=== PATIENT | male | born 2005 | race Caucasian/White ===

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

== ENCOUNTER 2025-03-12 15:01 | Emergency (ER) | payer BC, SELFPAY ==
[2025-03-12 15:03] VITALS: BP 134/89; PULSE 109; RESP 18; TEMP 37.3; O2SAT 99
--- NOTE | 2025-03-12 15:09 | CRLHL7_ITS ---
For Patients: As a result of the Century Cures Act, medical imaging exams and procedure reports are released immediately into your electronic medical record. You may view this report before your referring provider. If you have questions, please contact your health care provider. INDICATION: Throat pain. TECHNIQUE: CT of the neck soft tissues performed with IV contrast. Contrast: 84 cc Isovue 370. COMPARISON: CT neck soft tissue 10/15/2024. FINDINGS: Symmetric enlargement in homogeneous enhancement of the palatine tonsils. Enhancement of the nasopharyngeal mucosa. No drainable fluid collection identified. The parotid and submandibular glands appear unremarkable. The thyroid gland is normal. Scattered prominent cervical chain lymph nodes. The visualized major vascular structures appear intact. The visualized intracranial components appear grossly intact. Visualized orbits and contents appear unremarkable. Moderate paranasal sinus mucosal disease. Lung apices are clear. IMPRESSION: 1. Pharyngitis with palatine tonsillitis. 2. No drainable fluid collection identified. 3. Presumed reactive mild cervical chain lymphadenopathy. Please note that all CT scans at this facility use dose modulation, iterative reconstruction, and/or weight-based dosing when appropriate to reduce radiation dose to as low as reasonably achievable. Dictated by Leonard King MD @ 03/12/2025 4:17:56 PM (Electronically Signed)
--- NOTE | 2025-03-12 15:17 | ED.GENADULT ---
HPI - General Adult General Chief complaint: Ear/Nose/Throat Problem <Gasper Agarwal MD - Last Filed: 03/17/25 08:26> Stated complaint: throat issues <Gasper Agarwal MD - Last Filed: 03/17/25 08:26> Time Seen by Provider: 03/12/25 15:02 <Gasper Agarwal MD - Last Filed: 03/17/25 08:26> History of Present Illness HPI narrative: 19 year white male has had history of peritonsillar abscess in the past presents with some throat tightening last night he has had an earache. He has an ear infection and he has been called in antibiotics from the clinic. They were concerned about his throat given that his right-sided little more swollen than the left and he has more take pain on the right side than the left. He still able to swallow. He is scheduled get tonsillectomy in the middle of March. No other specific complaints. He is able to swallow, no airway hunger her breathing difficulty. <Gasper Agarwal MD - Last Filed: 03/17/25 08:26> Related Data Home medications: Home Medications ?Medication ?Instructions ?Recorded ?Confirmed risankizumab-rzaa 360 mg/2.4 mL 360 mg subcut .[id number] 10/13/24 03/12/25 (150 mg/mL) subcut wearable injector (Skyrizi) Previous Rx's ?Medication ?Instructions ?Recorded venlafaxine 150 mg 150 mg PO QAM #90 caps 10/21/24 capsule,extended release 24 hr amoxicillin-potassium clavulanate 1 tab PO BID #18 tabs 03/17/25 1,000 mg-62.5 mg tablet,ext.rel 12hr (Augmentin XR) <Gasper Agarwal MD - Last Filed: 03/17/25 08:26> Allergies/adverse reactions: Allergies Allergy/AdvReac Type Severity Reaction Status Date / Time No Known Drug Allergies Allergy Verified 03/12/25 15:54 <Gasper Agarwal MD - Last Filed: 03/17/25 08:26> Review of Systems Status of ROS: Reports: 6 or more systems reviewed and unremarkable except as noted in History and below <Gasper Agarwal MD - Last Filed: 03/17/25 08:26> PFSH PFSH Medical History: Medical History Cellulitis of left thumb ?L03.012 - Cellulitis of left finger (ICD-10) Paronychia Pain in thumb joint with movement of left hand ?M25.542 - Pain in joints of left hand (ICD-10) Sebopsoriasis ?L40.8 - Other psoriasis (ICD-10) Sprain of anterior talofibular ligament of right ankle ?S93.491A - Sprain of other ligament of right ankle, initial encounter (ICD-10) <Gasper Agarwal MD - Last Filed: 03/17/25 08:26> Surgical History: Surgical History History of placement of ear tubes ?Z96.22 - Myringotomy tube(s) status (ICD-10) History of esophagogastroduodenoscopy (EGD) ?Z98.890 - Other specified postprocedural states (ICD-10) History of colonoscopy ?Z98.890 - Other specified postprocedural states (ICD-10) <Gasper Agarwal MD - Last Filed: 03/17/25 08:26> Family History: Family History Family/Other Coronary artery disease Father Hyperlipidemia Liver disease Mother Hyperlipidemia High blood pressure Maternal Grandmother Skin cancer <Gasper Agarwal MD - Last Filed: 03/17/25 08:26> Social History: Social History Narrative: No secondhand smoke exposure What is your current living situation?: I presently have a place to live Problems where you live: no known problems Problems where you live details: none In the past 12 months, utilities in danger of being shut off: no In past 12 months, lack of transportation kept you from medical appts, meetings, work, or getting things needed for daily living: no In the past 12 mos, have been you worried that your food would run out before you had money to buy more?: never true In the past 12 mos, the food you bought just didn't last and you didn't have money to buy more?: never true Highest level of school completed/degree received: high school graduate Smoking Status: Never smoker Do you use any of these nicotine containing products: None How often do you have a drink containing alcohol: never AUDIT-C Alcohol total score: 0 Non-prescribed substance use: denies use Caffeine: Yes (coffee, pop) How often does anyone, including family, friends and others, physically hurt you: never How often does anyone, including family, friends and others, insult or talk down to you: never How often does anyone, including family, friends and others, threaten you with harm: never How often does anyone, including family, friends and others, scream or curse at you: never service: No <Gasper Agarwal MD - Last Filed: 03/17/25 08:26> Exam Narrative: Exam Narrative: Objective: Vital signs show temperature 99.2? rest of HEENT is unremarkable other than prominent right-sided peritonsillar swelling greater than left, mild pharyngeal redness Neck is supple Patient is alert oriented no trismus. <Gasper Agarwal MD - Last Filed: 03/17/25 08:26> Const: Vital Signs, click to edit/add: Vital Signs - 24 hr 03/12/25 15:03 Temperature 99.2 F Pulse Rate [Right Pulse Oximeter] 109 H Respiratory Rate 18 Blood Pressure [Ri ght Upper Arm] 134/89 Pulse Oximetry 99 Oxygen Delivery Me thod Room Air <Gasper Agarwal MD - Last Filed: 03/17/25 08:26> Vital Signs, click to edit/add: Vital Signs - 24 hr 03/12/25 15:03 Temperature 99.2 F Pulse Rate [Right Pulse Oximeter] 109 H Respiratory Rate 18 Blood Pressure [Ri ght Upper Arm] 134/89 Pulse Oximetry 99 Oxygen Delivery Me thod Room Air <Agatha Matos MD - Last Filed: 03/12/25 16:32> Course Reevaluation(s) Time of Reevaluation #1: 16:31 <Agatha Matos MD - Last Filed: 03/12/25 16:32> Reevaluation #1: Patient updated that his soft tissue neck CT is not showing any abscess. He does have pharyngitis and antibiotics are sent in for him from urgent care. We will plan to discharge to home at this time, provided copy of his CT report. <Agatha Matos MD - Last Filed: 03/12/25 16:32> Vital Signs Vital signs: Initial Vital Signs Temperature 99.2 F 03/12/25 15:03 Temperature Source Temporal Artery Scan 03/12/25 15:03 Pulse Rate 109 H 03/12/25 15:03 Pulse Rhythm Regular 03/12/25 15:03 Pulse Strength 3+ Normal 03/12/25 15:03 Respiratory Rate 18 03/12/25 15:03 Blood Pressure 134/89 03/12/25 15:03 Blood Pressure Mean 104 03/12/25 15:03 Blood Pressure Position Sitting 03/12/25 15:03 Pulse Oximetry 99 03/12/25 15:03 Oxygen Delivery Method Room Air 03/12/25 15:03 Vital Signs Temperature 99.2 F 03/12/25 15:03 Pulse Rate 109 H 03/12/25 15:03 Respiratory Rate 18 03/12/25 15:03 Blood Pressure 134/89 03/12/25 15:03 Pulse Oximetry 99 03/12/25 15:03 Oxygen Delivery Method Room Air 03/12/25 15:03 Temperature 99.2 F 03/12/25 15:03 Pulse Rate 109 H 03/12/25 15:03 Respiratory Rate 18 03/12/25 15:03 Blood Pressure 134/89 03/12/25 15:03 Pulse Oximetry 99 03/12/25 15:03 Oxygen Delivery Method Room Air 03/12/25 15:03 <Gasper Agarwal MD - Last Filed: 03/17/25 08:26> Initial Vital Signs Temperature 99.2 F 03/12/25 15:03 Temperature Source Temporal Artery Scan 03/12/25 15:03 Pulse Rate 109 H 03/12/25 15:03 Pulse Rhythm Regular 03/12/25 15:03 Pulse Strength 3+ Normal 03/12/25 15:03 Respiratory Rate 18 03/12/25 15:03 Blood Pressure 134/89 03/12/25 15:03 Blood Pressure Mean 104 03/12/25 15:03 Blood Pressure Position Sitting 03/12/25 15:03 Pulse Oximetry 99 03/12/25 15:03 Oxygen Delivery Method Room Air 03/12/25 15:03 Vital Signs Temperature 99.2 F 03/12/25 15:03 Pulse Rate 109 H 03/12/25 15:03 Respiratory Rate 18 03/12/25 15:03 Blood Pressure 134/89 03/12/25 15:03 Pulse Oximetry 99 03/12/25 15:03 Oxygen Delivery Method Room Air 03/12/25 15:03 Temperature 99.2 F 03/12/25 15:03 Pulse Rate 109 H 03/12/25 15:03 Respiratory Rate 18 03/12/25 15:03 Blood Pressure 134/89 03/12/25 15:03 Pulse Oximetry 99 03/12/25 15:03 Oxygen Delivery Method Room Air 03/12/25 15:03 <Agatha Matos MD - Last Filed: 03/12/25 16:32> Medications Administered Medications: Discontinued Medications Generic Name Dose Route Start Last Admin Trade Name Freq PRN Reason Stop Dose Admin Sodium Chloride 1,000 mls @ 6,000 mls/hr 03/12/25 15:15 03/12/25 16:39 0.9 % Sodium Chloride 1000 Ml IV 03/12/25 15:24 Infused .Q10M DALLIN Infusion <Gasper Agarwal MD - Last Filed: 03/17/25 08:26> Discontinued Medications Generic Name Dose Route Start Last Admin Trade Name Freq PRN Reason Stop Dose Admin Sodium Chloride 1,000 mls @ 6,000 mls/hr 03/12/25 15:15 03/12/25 16:39 0.9 % Sodium Chloride 1000 Ml IV 03/12/25 15:24 Infused .Q10M DALLIN Infusion <Agatha Matos MD - Last Filed: 03/12/25 16:32> Medical Decision Making MDM Narrative Medical decision making narrative: 19-year-old white male with history of right greater than left peritonsillar swelling starting last night over last 24 hours history of peritonsillar abscess. Patient has otitis media diagnosed by the clinic and he has been cyst given a prescription for antibiotics. He will get a CT scan of his neck to make sure does not have a peritonsillar abscess. If this is negative simply anti-inflammatories and the antibiotic that was prescribed. <Gasper Agarwal MD - Last Filed: 03/17/25 08:26> Imaging Data CT- Other: Attestation: I have reviewed the pertinent imaging results. <Agatha Matos MD - Last Filed: 03/12/25 16:32> Radiologist's impression: Patient: LINDA WHALEY Facility:?[facility] Patient ID:?[id number] Site Patient ID:?[id number]. Site :?2005 Study:?CT-ST Neck 84CC ISOVUE 370-03/12/2025 3:56:26 PM Ordering Physician:[place] Final Report: INDICATION: Throat pain. TECHNIQUE: CT of the neck soft tissues performed with IV contrast. Contrast: 84 cc Isovue 370. COMPARISON: CT neck soft tissue 10/15/2024. FINDINGS: Symmetric enlargement in homogeneous enhancement of the palatine tonsils. Enhancement of the nasopharyngeal mucosa. No drainable fluid collection identified. The parotid and submandibular glands appear unremarkable. The thyroid gland is normal. Scattered prominent cervical chain lymph nodes. The visualized major vascular structures appear intact. The visualized intracranial components appear grossly intact. Visualized orbits and contents appear unremarkable. Moderate paranasal sinus mucosal disease. Lung apices are clear. IMPRESSION: 1. Pharyngitis with palatine tonsillitis. 2. No drainable fluid collection identified. 3. Presumed reactive mild cervical chain lymphadenopathy. Please note that all CT scans at this facility use dose modulation, iterative reconstruction, and/or weight-based dosing when appropriate to reduce radiation dose to as low as reasonably achievable. Dictated by Leonard King MD @ 03/12/2025 4:17:56 PM (Electronic Signature) <Agatha Matos MD - Last Filed: 03/12/25 16:32> Discharge Plan Discharge Clinical Impression: History of otitis media, History of peritonsillar abscess <Gasper Agarwal MD - Last Filed: 03/17/25 08:26> Patient Disposition: Home w/ Parent or Adult <Gasper Agarwal MD - Last Filed: 03/17/25 08:26> Condition: Stable <Gasper Agarwal MD - Last Filed: 03/17/25 08:26> Additional Instructions: Augmentin as prescribed to clinic, Advil or Tylenol as needed, recheck with primary care not improving changes or concerns. <Gasper Agarwal MD - Last Filed: 03/17/25 08:26> Activity Level: Light activity <Gasper Agarwal MD - Last Filed: 03/17/25 08:26> Light activity <Agatha Matos MD - Last Filed: 03/12/25 16:32> Discharge Diet: Regular <Gasper Agarwal MD - Last Filed: 03/17/25 08:26> Regular <Agatha Matos MD - Last Filed: 03/12/25 16:32> Prescriptions: No Action venlafaxine 150 mg capsule,extended release 24hr 150 mg PO QAM Qty: 90 3RF amoxicillin-pot clavulanate [Augmentin XR] 1,000-62.5 mg tablet extended release 12 hr 1 tab PO BID Qty: 18 0RF Skyrizi 360 mg/2.4 mL (150 mg/mL) wearable injector 360 mg subcut .[id number] <Gasper Agarwal MD - Last Filed: 03/17/25 08:26> Follow Up/Referrals: April Paul PA-C [Primary Care Provider, Family Practice] <Gasper Agarwal MD - Last Filed: 03/17/25 08:26> Stand Alone Forms: [facility] Info Instructions <Gasper Agarwal MD - Last Filed: 03/17/25 08:26>
== END 2025-03-12 16:44 | disposition home or self-care (01) ==
LOC: ED 15:45
PROVIDERS: Emergency Provider Family Medicine; PCP Physician Assistant Medical
DX: J38.4 Edema of larynx (principal); J02.9 Acute pharyngitis, unspecified; Z87.09 Personal history of other diseases of the respiratory system
CPT/HCPCS: 70491; 99284; 99285; J7030; Q9967

== ENCOUNTER 2025-04-04 08:13 | Day surgery (SDC) | payer BC, SELFPAY ==
[2025-04-04] VITALS (15 sets, daily range): BP systolic 95–136; BP diastolic 64–105; PULSE 72–110; RESP 14–16; TEMP 36.2–36.8; O2SAT 94–100; BMI 21.2
[2025-04-04] MEDS: LACTATED RINGERS 1000 ML 1,000 ML 100 ML IV ×2 (08:20→10:10)
[2025-04-04] MEDS: SODIUM CHLORIDE 0.9 % (FLUSH) 10 ML SYRINGE IVF (08:44)
--- NOTE | 2025-04-04 09:49 | P.ANES_ITS ---
Anesthesia Charges Start Date/Time Anesthesia Start Date: 04/04/25 Anesthesia Start Time: 09:14 Stop Date/Time Anesthesia Stop Date: 04/04/25 Anesthesia Stop Time: 09:49 Coding CPT Codes CPT Codes: ANESTH PROCEDURE ON MOUTH - 25064 ([id number]) P2 - PATIENT W/MILD SYST DISEASE, QK - CEILING INSTALLER 2-4 CNCRNT ANES PROC, QX - OUTSIDE ENERGY SALES REPRESENTATIVES SVC W/ MD MED DIRECTION
--- NOTE | 2025-04-04 09:49 | W.ANESCHARGE ---
Anesthesia Charges Start Date/Time Anesthesia Start Date: 04/04/25 Anesthesia Start Time: 09:14 Stop Date/Time Anesthesia Stop Date: 04/04/25 Anesthesia Stop Time: 09:49 Coding CPT Codes CPT Codes: ANESTH PROCEDURE ON MOUTH - 26464 ([id number]) P2 - PATIENT W/MILD SYST DISEASE, QK - HEALTH AND SAFETY INSTRUCTOR 2-4 CNCRNT ANES PROC, QX - TECHNICIAN INVENTORY SPECIALIST SVC W/ MD MED DIRECTION
[2025-04-04] MEDS: ACETAMINOPHEN 160 MG/5 ML CUP 320 MG PO (10:40)
[2025-04-04] MEDS: ONDANSETRON 2 MG/ML inj 4 MG IVP (11:21)
--- NOTE | 2025-04-04 11:42 | P.ANES_ITS ---
Anesthesia Charges Start Date/Time Anesthesia Start Date: 04/04/25 Anesthesia Start Time: 09:14 Stop Date/Time Anesthesia Stop Date: 04/04/25 Anesthesia Stop Time: 09:49 Coding CPT Codes CPT Codes: ANESTH PROCEDURE ON MOUTH - 99133 ([id number]) QK - PERSONAL CARE HOME ADMINISTRATOR 2-4 CNCRNT ANES PROC, QX - HIGHWAY ADMINISTRATIVE ENGINEER SVC W/ MD MED DIRECTION, P2 - PATIENT W/MILD SYST DISEASE
--- NOTE | 2025-04-04 11:42 | W.ANESCHARGE ---
Anesthesia Charges Start Date/Time Anesthesia Start Date: 04/04/25 Anesthesia Start Time: 09:14 Stop Date/Time Anesthesia Stop Date: 04/04/25 Anesthesia Stop Time: 09:49 Coding CPT Codes CPT Codes: ANESTH PROCEDURE ON MOUTH - 97149 ([id number]) QK - LABORER [employer] 2-4 CNCRNT ANES PROC, QX - CALENDER OPERATOR HELPER SVC W/ MD MED DIRECTION, P2 - PATIENT W/MILD SYST DISEASE
--- NOTE | 2025-04-04 12:31 | P.ENTPROC_ITS ---
Procedure Note Date of procedure: 04/04/25 Procedure: Preop diagnosis chronic tonsillitis, massive tonsillar hypertrophy bilateral Postop same Procedure tonsillectomy Under general trach anesthesia patient was prepped and draped usual fashion. The McIvor mouth gag was inserted the tongue retracted forward. The nasopharynx was inspected and a minimal amount of nasopharyngeal tonsil tissue was removed with suction cautery. The right tonsil was removed with a combination of needlepoint cautery and bipolar cautery with the [employer] device. This was repeated on the left side in identical fashion. All bleeding was then controlled with suction cautery. The patient procedure well meticulous hemostasis was achieved. Blood loss was 10 mL. Surgeon: Keenan Hays MD
== END 2025-04-04 12:00 | disposition home or self-care (01) ==
LOC: OR 08:15
PROVIDERS: PCP Physician Assistant Medical; Visit Provider Otolaryngology
PROC: (CPT 42826; principal; 2025-04-04 09:30)
DX: J35.01 Chronic tonsillitis (principal)
CPT/HCPCS: 42826; 00170; A9270; J0330; J2250; J2405; J2704; J3010; J7120

== ENCOUNTER 2025-04-08 21:06 | Emergency (ER) | payer BC, SELFPAY ==
--- OUTSIDE RECORDS SUMMARY | 2021-12-15 02:20 | XMS_ITS | Continuity of Care Document ---
Author Organization [facility] Address [address] [address] [place] [address] Phone Care Team Providers Care Composition Floor Layer Name Role Phone Derek Armendariz MD Unavailable Unavailabl e Advance Directives Directive Yes / No Effective Date File Name No Information Encounters Encounter Description Practice Location Reason(s) For Visit Diagnoses Date Provider Providers Copied on Encounter [facility], [address] [address], [place], [place], [id number], [place] tel:[phone] [facility] No Information [facility]. [address] [address], [place], [place], [id number], [place]. tel:[phone] Family History Family Member Type Diagnosis Age At Onset No Information Payers Payer name Insurance type Covered democrat ID Authoriza tion(s) No Information Social History [...]
--- OUTSIDE RECORDS SUMMARY | 2025-04-08 21:08 | XMS_ITS | Clinical Summary ---
Author Organization [facility] Address [address] [place] [address] Care Team Providers Care Developmental Specialist Name Role Phone Michael Jason MD Unavailable [phone] April Paul PA-C Primary Care Provider [phone] Nelida Villafuerte MD Unavailable [phone] Donna Little MD Unavailable [phone] Michael Jason MD Unavailable [phone] Loretta Hernández [facility] Unavailable [phone] Loretta Hernández [facility] Unavailable +- Allergies No known active allergies Medications MedicationSigDispense QuantityRefillsLast FilledStart DateEnd DateStatus Pediatric Faltsjps-Vhaaxixo-K (GUMMY VITAMINS & MINERALS) chewable tablet Take 1 tablet by mouth dailyActive venlafaxine (EFFEXOR XR) 150 MG 24 hr capsule Take 150 mg by mouth daily11/14/2023ctive ondansetron (ZOFRAN ODT) 4 MG ODT tab Indications:Crohn's disease of both small and large intestine without complication (H),Abdominal pain, generalizedTake 1 tablet (4 mg) by mouth every 8 hours as needed for nausea or other (Take 30-60minutes prior to Rifampin) 30 tablet 4Active risankizumab-rzaa (SKYRIZI) 360 MG/2.4ML on-body injector Indications:Crohn's disease of both small and large intestine with intestinal obstruction (H)Inject 2.4 mLs (360 mg) subcutaneously once every eight weeks. 2.4 mL 5Active Active Problems ProblemNoted DateDiagnosed DatePositive QuantiFERON-TB Gold test03/05/2024Iron xkyvwwossx57/29/2024Partial small bowel hdwddvuzkvm88/04/2021rohn's disease of both small and large intestine with intestinal xjxtkyocrsu47/11/2019 Encounters DateTypeDepartmentCare CkneRnzpkrfbean73/23/2025My Medical Advice [facility] [address] [place] [phone] Michael Jason MD 02/15/2025Results Follow-Up [facility] [address] [place] [phone] Michael Jason MD Subj: Message about your yopaexf5102/13/2025 3:30 PM CDTLab [facility] [address] [place] [phone] Crohn's disease of both small and large intestine with intestinal obstruction (H)02/12/2025 11:00 AM CDTVirtual Visit [facility] [address] [facility] [address] [place] [phone] Michael Jason MD Trocke, Lindsay Lundell, [facility] Crohn's disease of both small and large intestine with intestinal obstruction (H) (Primary Dx); Mood smeqociq11/16/2025MyC Medical Advice [facility] [address] [place] [address], [address] [place] [phone] Ame Coffman 01/17/2025Results Follow-Up [facility] [address] [place] [address] Michael Jsaon MD Subj: Message about your viutkpm1501/16/2025 9:39 AM CDT - 01/16/2025 11:59 PM CDT Hospital Encounter [facility] [address] [place] [phone] Micheal Jason MD Crohn's disease of both small and large intestine with intestinal obstruction (H) Discharge Disposition: Home or Self Care01/16/2025Telephone [facility] [address] [facility] [address] [place] [address] Michael Jason MD Call Back01/16/2025Travelfrom Last 3 Months Immunizations ImmunizationAdministration DatesNext DueCOVID-19 Bivalent 12+ (Pfizer)03/22/2022 COVID-19 MONOVALENT 12+ (Pfizer)1DTAP (<7y)01/18/2007,04/20/2006, 02/20/2006,2005DTAP-IPV, <7Y (QUADRACEL/KINRIX)09/07/2010Flu, Unspecified 01/23/2008,01/18/2007,05/30/2006,04/20/20062657J7l8-38 Novel Flu02/17/2009HIB (PRP-T)10/27/2006,02/20/2006,2005HIB, Ekwhblmdezp70/13/2007,02/20/2006, 2005HPV9 (Gardasil)10/02/2018,11/08/2017HepB, Mlewhzcniwl77/13/2007, 02/20/2006,2005Hepatitis A (Vaqta/Havrix)(Peds 12m-18y)09/27/2016, 09/22/2015Hepatitis B, Peds (Engerix-B/Recombivax HB)04/23/2019,10/27/2006, 02/20/2006,2005Historical DTP/aP1,04/20/2006,02/20/2006, 2005Influenza (H1N1)05/06/2009,02/17/2009Influenza (IIV3) PF12/21/2011, 01/17/2011,01/19/2010,01/02/2009Influenza (intradermal)01/23/2008,01/18/2007, 05/30/2006,04/20/2006Influenza (prior to 2023)01/17/2011,01/19/2010,01/02/2009 Influenza Intranasal Uainaml2912/21/2011Influenza Vaccine >6 months,quad, PF 02/08/2022,02/23/2021,03/09/2020,01/28/2019,02/13/2018,02/08/2017,01/02/2009 Influenza Vaccine, 6+MO IM (QUADRIVALENT W/PRESERVATIVES)01/28/2019,02/13/2018, 02/08/2017,02/18/2016Influenza,INJ,MDCK,PF,Quad >6mo(Flucelvax)02/18/2016MMR (MMRII)09/07/2010,10/27/2006Meningococcal ACWY (Menactra??)06/13/2017 Meningococcal ACWY (Menveo??)06/13/2017Meningococcal,pnrftexyrnf02/27/2018Nasal Influenza Vaccine 2-49 (FluMist)01/30/2015,03/07/2014,01/07/2013Pneumo Conj 13-V (2010&after)11/28/2019,2005Pneumococcal (PCV 7)10/27/2006,04/20/2006, 02/20/2006,2005Pneumococcal 23 yaplnn0408/21/2019Polio, Unspecified 04/20/2006,02/20/2006,2005Poliovirus, inactivated (IPV)2005TDAP Vaccine (Adacel)06/13/2017Varicella (Varivax)04/23/2019,09/07/2010,04/25/2007 Social History Tobacco UseTypesPacks/DayYears UsedDateSmoking Tobacco: NeverPassive Smoke Exposure: NeverSmokeless Tobacco: Never Tobacco Cessation:Counseling Given: Not Answered Alcohol UseStandard Drinks/WeekCommentsNever0 (1 standard drink = 0.6 oz pure alcohol)AUDIT-CAnswerDate RecordedQ1: How often do you have a drink containing alcohol?Never01/16/2019Average Number of DrinksNot on file01/16/2019Frequency of Binge DrinkingNot on file01/16/2019PHQ-2AnswerDate RecordedPHQ-2 Score0 05/20/2024dolescent EducationAnswerDate RecordedGetting School Help NeededNot on file01/09/2023Sex and Gender InformationValueDate RecordedSex Assigned at BirthNot on fileLegal RylEqah03/04/2012 4:45 AM CSTGender IdentityNot on file Sexual OrientationNot on file Last Filed Vital Signs Vital SignReadingTime TakenCommentsBlood Tkisdfja893/7705 8:29 AM CDT Srndb710408/28/2024 8:29 AM EOSRghvaeikcnj00.7 ??C (98.1 ??F)08/01/2024 4:24 PM CDTRespiratory Ftvt236008/01/2024 4:24 PM CDTOxygen Ljltzuohvv41%08/01/2024 4:24 PM CDTInhaled Oxygen Concentration--Rqtbba93.1 kg (170 lb)02/12/2025 10:35 AM HLTTycttl355.5 cm (6' 3)02/12/2025 10:35 AM CDTBody Mass Index21.251 10:35 AM CDT Plan of Treatment DateTypeDepartmentCare Team (Latest Contact Info)Tawvrkaftkh74/20/2026 11:00 AM CSTOffice Visit [facility] [address] [place] [phone] Michael Jason MD [address] [place] [phone] Health MaintenanceDue DateLast DoneCommentsADVANCE CARE QPQXVYPY51/04/2006NNUAL REVIEW OF HM DUQBQR71 2005YEARLY PREVENTIVE VISIT2008HIV SCREENING 2020MENINGITIS B VACCINE (2 of 2 - Bexsero SCDM 2-dose series)05/16/2024 11/14/2023NEUMOCOCCAL VACCINE: PEDIATRICS (0 to 5 YEARS) AND AT-RISK PATIENTS (6 to 49 YEARS) (2 of 2 - PCV20 or PCV21), 08/21/2019, 10/27/2006, Additional history existsZOSTER VACCINE (1 of 2)5COVID-19 VACCINE ( - season), 03/22/2022, 04/12/2021, Additional history existsINFLUENZA VACCINE (#1)/08/2023, 02/16/2023, 02/08/2022, Additional history existsDTAP/TDAP/TD VACCINE (7 - Td or Tdap) 8006/13/2017, 09/07/2010, 01/18/2007, Additional history existsHIB ABTMKOIGfghymhdb00/13/2007, 10/27/2006, 02/20/2006, Additional history existsIPV KLXKJNZWfaoiikia54/24/2011, 04/20/2006, 02/20/2006, Additional history existsHPV RRLCUAPKxbgcbmjn19/18/2019, 11/08/2017HEPATITIS C FSLSCCIEDQktmmahti41/11/2019 HEPATITIS B SDMGYITKlbmsusod38/07/2020, 10/27/2006, 10/27/2006, Additional history existsVARICELLA VMZTGWGUylcapvsr56/07/2020, 09/07/2010, 04/25/2007 MENINGITIS BJOIKNTAxaqqvpvl92/19/2023, 06/13/2017, 06/13/2017, Additional history existsPHQ-2 (once per calendar year)Sarausrrj73/03/2025, 03/05/2024, 11/28/2023, Additional history exists Procedures Procedure NamePriorityDate/TimeAssociated DiagnosisCommentsCALPROTECTIN FECES Vyshrju5402/13/2025 2:50 PM CDT Crohn's disease of both small and large intestine with intestinal obstruction (H) MR ENTEROGRAPHY W/O AND W BOTILXHAAjysiid87/02/2025 12:01 PM CDT Crohn's disease of both small and large intestine with intestinal obstruction (H) HEPATITIS C BXBQZRLSDlnleor85/11/2019 3:59 PM CDT Crohn's disease of both small and large intestine without complication (H) from Last 3 Months or Most Recently Relevant to Health Maintenance Results * (ABNORMAL) Calprotectin Feces (02/13/2025 2:50 PM CDT)ComponentValueRef Range Test MethodAnalysis TimePerformed AtPathologist SignatureCalprotectin Feces 684.0(H)0.0 - 49.9 mg/kg02/14/2025 1:18 PM CDTUM SPECIALTY CORE/PROT/ENDO Comment: Abnormal, repeat as clinically indicated. Fecal calprotectin is an indicator of neutrophil presence in the stool. It is not specific for IBD.Elevated calprotectin may also be seen in patients with other conditions, such as microscopic colitis, diverticular disease, gastrointestinal infections, and colorectal cancer. Some medications,such as NSAIDs and proton pump inhibitors may also result in elevated calprotectin levels. Specimen (Source)Anatomical Location / LateralityCollection Method / Volume Collection TimeReceived TimeStoolRECTAL CONTENTS / UnknownNon-blood Collection / Dpuraaj5902/13/2025 2:50 PM CDT1 3:28 PM CDT Narrative Authorizing ProviderResult TypeResult StatusMichael Jason MDLAB - STOOLS ORDERABLESFinal ResultPerforming OrganizationAddressCity/State/ZIP CodePhone Number [facility]PROT/ENDO [facility]/Prot/Endo [address] [facility] [address] Building, Room 3-[address] * MR Enterography wo and w Contrast (01/16/2025 12:01 PM CDT)Anatomical Region LateralityModalityAbdomen/Pelvis, SUBRAD MR BODY, UMP MR BODY, RAD MRMagnetic ResonanceSpecimen (Source)Anatomical Location / LateralityCollection Method / VolumeCollection TimeReceived Time Impressions 01/17/2025 9:11 AM CDT IMPRESSION: There is continued Crohn's disease involvement of the terminal ileum extending 10 to 15 cm. There is improvement in the degree of acute inflammation with mild residual acute inflammation. There are areas of narrowing with proximal dilation indicating some degree of stricture. No other sites of disease involvement are seen. I have personally reviewed the examination and initial interpretation and I agree with the findings. JORGE ALVAREZ MD Narrative 01/17/2025 9:11 AM CDT EXAMINATION: MR ENTEROGRAPHY W/O AND W CONTRAST, 01/16/2025 12:01 PM TECHNIQUE: Multiplanar, multisequence MRI imaging of the abdomen and pelvis was obtained using MR enterography protocol without and with intravenous gadolinium. Contrast dose: 7.5cc of Gadavist injected. COMPARISON: 02/13/2024, 07/14/2023 HISTORY: reassess CD; Crohn's disease of both small and large intestine with intestinal obstruction (H) FINDINGS: Exam quality: Adequate Small and large bowel: The terminal ileum demonstrates mild enhancement in the areas of increased T2 signal indicating acute chronic disease. There are are areas of thickening and narrowing as well as intervening areas of mild dilation. The total length of disease involvement is similar to previous exam, measuring approximately 10 15 cm. When compared to previous, the degree of enhancement early enhancement is significantly improved though there is some persistent mild enhancement. There is an area of dilation of the proximal ileum measuring up to 5 cm on (series 3 image 79). No fistula or abscess. Remainder of exam: Normal appearance of the liver. Gallbladder is normal. No intra or extra hepatic biliary dilatation. No pancreatic ductal dilation or mass. Spleen. No adrenal nodule. No hydronephrosis or renal mass. No acute or aggressive osseous abnormality. No abdominal adenopathy. Procedure Note Jorge Alvarez MD - 01/17/2025 EXAMINATION: MR ENTEROGRAPHY W/O AND W CONTRAST, 01/16/2025 12:01 PM TECHNIQUE: Multiplanar, multisequence MRI imaging of the abdomen and pelvis was obtained using MR enterography protocol without and with intravenous gadolinium. Contrast dose: 7.5cc of Gadavist injected. COMPARISON: 02/13/2024, 07/14/2023 HISTORY: reassess CD; Crohn's disease of both small and large intestine with intestinal obstruction (H) FINDINGS: Exam quality: Adequate Small and large bowel: The terminal ileum demonstrates mild enhancement in the areas of increased T2 signal indicating acute chronic disease. There are are areas of thickening and narrowing as well as intervening areas of mild dilation. The total length of disease involvement is similar to previous exam, measuring approximately 10 15 cm. When compared to previous, the degree of enhancement early enhancement is significantly improved though there is some persistent mild enhancement. There is an area of dilation of the proximal ileum measuring up to 5 cm on (series 3 image 79). No fistula or abscess. Remainder of exam: Normal appearance of the liver. Gallbladder is normal. No intra or extra hepatic biliary dilatation. No pancreatic ductal dilation or mass. Spleen. No adrenal nodule. No hydronephrosis or renal mass. No acute or aggressive osseous abnormality. No abdominal adenopathy. IMPRESSION: There is continued Crohn's disease involvement of the terminal ileum extending 10 to 15 cm. There is improvement in the degree of acute inflammation with mild residual acute inflammation. There are areas of narrowing with proximal dilation indicating some degree of stricture. No other sites of disease involvement are seen. I have personally reviewed the examination and initial interpretation and I agree with the findings. JORGE ALVAREZ MD Authorizing ProviderResult TypeResult StatusMichael Jason MDCiaran MRI ORDERABLESFinal Result * Hepatitis C antibody (01/25/2019 3:59 PM CDT)ComponentValueRef RangeTest MethodAnalysis TimePerformed AtPathologist SignatureHepatitis C Antibody NonreactiveNR^Xwphnfdwekd43/14/2019 11:48 AM CDTUNMT. [facility] P[facility]AT[facility] HOSPITALComment: Assay performance characteristics have not been established for newborns, infants, and children Specimen (Source)Anatomical Location / LateralityCollection Method / Volume Collection TimeReceived TimeBlood specimen (specimen)01/25/2019 3:59 PM CDT 01/25/2019 4:00 PM CDT Narrative Authorizing ProviderResult TypeResult Gerald Dotson MDLAB - BLOOD ORDERABLES Final ResultPerforming OrganizationAddressCity/State/ZIP CodePhone Number [facility] [address] [place] [address] from Last 3 Months or Most Recently Relevant to [place] [address] Advance Directives For more information, please contact: [phone] * Full Code (Latest Code Status on File) Date ActivatedDate InactivatedComments07/19/2020 2:47 PM07/20/2020 3:17 PMAll basic and advanced life-sustaining interventions are performed as appropriateQuestion AnswerCommentsCode status determined by:* Unable to determine; FULL CODE until documents or legal decision maker available Care Teams Team MemberRelationshipSpecialtyStart DateEnd Date April Paul PA-C [facility] [address] [place], [place] [phone] PCP - General08/31/22 Michael Jason MD [address] [place] [phone] Assigned Pediatric Specialist Provider07/30/22 Nelida Villafuerte MD [address] [place] [address] MDNeurology with Spec Qualification in Child Neurology11/30/22 Donna Little MD [facility] [address] [address] PhysicianPediatric Infectious Diseases12/04/23 Michael Jason MD [address] [place] [address] MDPediatric Qlzimclujiktxcpa12/19/24 Loretta Hernández Javier [address] [place], [place] [address] PharmacistPharmacist Ambulatory Care06/25/24 Loretta Hernández RPH [address] [place], [place] 249375 Assigned [facility] Pharmacist07/07/24
--- OUTSIDE RECORDS SUMMARY | 2025-04-08 21:08 | XMS_ITS | Encounter Summary ---
Author Organization [facility] Address [address] [place] [address] Care Team Providers Care Numerical Control Machine Machinist Name Role Phone Michael Jason MD Unavailable [phone] April Paul PA-C Primary Care Provider [phone] Nelida Villafuerte MD Unavailable [phone] Donna Little MD Unavailable [phone] Michael Jason MD Unavailable [phone] Loretta Hernández [facility] Unavailable [phone] Loretta Hernández [facility] Unavailable [phone] Encounter Details DateTypeDepartmentCare Team (Latest Contact Info)Qafakgcodyp32/23/2025[facility] Medical Advice [facility] [address] [place] [phone] Michael Jason MD [address] [place] [address] [phone] Social History Tobacco UseTypesPacks/DayYears UsedDateSmoking Tobacco: NeverPassive Smoke Exposure: NeverSmokeless Tobacco: NeverAlcohol UseStandard Drinks/WeekComments Never0 (1 standard drink = 0.6 oz pure alcohol)AUDIT-CAnswerDate RecordedQ1: How often do you have a drink containing alcohol?Never01/16/2019Average Number of DrinksNot on file01/16/2019Frequency of Binge DrinkingNot on file01/16/2019PHQ-2 AnswerDate RecordedPHQ-2 Zwybw4355Adolescent EducationAnswerDate Recorded Getting School Help NeededNot on file01/09/2023Sex and Gender InformationValue Date RecordedSex Assigned at BirthNot on fileLegal NkhWale44/04/2012 4:45 AM [employer] P[employer] Gender IdentityNot on fileSexual OrientationNot on filedocumented as of this encounter Plan of Treatment DateTypeDepartmentCare Team (Latest Contact Info)Yishtxhevoy15/20/2026 11:00 AM CSTOffice Visit [facility] [address] [place] [phone] Michael Jason MD [address] [place] [address] [phone] documented as of this encounter Visit Diagnoses Not on filedocumented in this encounter Additional Health Concerns AssessmentNoted TimePHQ-9 Depression Total Score: 16008/31/2022 8:13 AM CDT documented as of this encounter Care Teams Team MemberRelationshipSpecialtyStart DateEnd Date April Paul PA-C [facility] [address] [place] [address] PCP - General08/31/22 Michael Jason MD [address] [place] [address] [phone] Assigned Pediatric Specialist Provider07/30/22 Nelida Villafuerte MD [address] [place] [address] [phone] Neurology with Spec Qualification in Child Neurology11/30/22 Donna Little MD [facility] [address] [phone] PhysicianPediatric Infectious Diseases12/04/23 Michael Jason MD [address] [place] [address] MDPediatric Rdvxnfpcjbiqqmpi75/19/24 Loretta Hernández [facility] [address] [place] [address] [phone] PharmacistPharmacist Ambulatory Care06/25/24 Loretta Hernández [facility] [address] [place] [address] [phone] Assigned [facility] Pharmacist07/07/24documented as of this encounter
[2025-04-08 21:35] VITALS: BP 118/70; PULSE 122; RESP 20; TEMP 37.2; O2SAT 96; BMI 21.2
[2025-04-08] MEDS: ONDANSETRON 2 MG/ML inj 4 MG IVP (21:55)
--- NOTE | 2025-04-08 22:00 | ED_ITS ---
HPI - General Adult General Chief complaint: Dental/Oral/Mouth Injury/Pain Stated complaint: Needs fluids post surgery Time Seen by Provider: 04/08/25 21:41 History of Present Illness HPI narrative: This 19-year-old male had his tonsils removed 4 days ago and comes in with his parents. His parents believe that he needs IV fluids as he has not taken much of anything to eat or drink given the discomfort of his tonsillectomy. He does arrive here with tachycardia and heart rate at 122 beats per minute. Other vital signs are normal. He has been able to take oral liquid pain medicine. Related Data Home Medications ?Medication ?Instructions ?Recorded ?Confirmed risankizumab-rzaa 360 mg/2.4 mL 360 mg subcut .[id number] 10/13/24 03/19/25 (150 mg/mL) subcut wearable injector (Skyrizi) Previous Rx's ?Medication ?Instructions ?Recorded venlafaxine 150 mg 150 mg PO QAM #90 caps 10/21 capsule,extended release 24 hr amoxicillin-potassium clavulanate 1 tab PO BID #18 tab s 03/17/25 1,000 mg-62.5 mg tablet,ext.rel 12hr (Augmentin XR) hydroxyzine HCl 25 mg tablet 25 - 50 mg (1 - 2 x 25 mg ) PO TID 03/19/25 PRN anxiety #60 tabs ondansetron 4 mg disintegrating 2 mg (1/2 x 4 mg) PO Q 8H PRN 04/04/25 tablet nausea #7 tabs oxycodone 5 mg/5 mL oral solution 5 mg (5 mL) PO Q4-6H PRN pain #200 04/04/25 mL Allergies Allergy/AdvReac Type Severity Reaction Status Date / Time No Known Drug Allergies Allergy Verified 04/08/25 21:37 Review of Systems Status of ROS: Reports: unobtainable due to medical condition Narrative: The patient does not wish to talk so I could not obtain good review of systems. [facility] Medical History (Updated 04/08/25 @ 22:03 by Alexander Stokes MD) Positive QuantiFERON-TB Gold test ?R76.12 - Nonspecific reaction to cell mediated immunity measurement of gamma interferon antigen response without active tuberculosis (ICD-10) Peritonsillar abscess ?J36 - Peritonsillar abscess (ICD-10) History of otitis media ?Z86.69 - Personal history of other diseases of the nervous system and sense organs (ICD-10) Cellulitis of left thumb ?L03.012 - Cellulitis of left finger (ICD-10) Sebopsoriasis ?L40.8 - Other psoriasis (ICD-10) Sprain of anterior talofibular ligament of right ankle ?S93.491A - Sprain of other ligament of right ankle, initial encounter (ICD- 10) Surgical History History of placement of ear tubes ?Z96.22 - Myringotomy tube(s) status (ICD-10) History of esophagogastroduodenoscopy (EGD) ?Z98.890 - Other specified postprocedural states (ICD-10) History of colonoscopy ?Z98.890 - Other specified postprocedural states (ICD-10) Family History Family/Other Coronary artery disease Father Hyperlipidemia Liver disease Mother Hyperlipidemia High blood pressure Maternal Grandmother Skin cancer Social History Narrative: No secondhand smoke exposure What is your current living situation?: I presently have a place to live Problems where you live: no known problems Problems where you live details: none In the past 12 months, utilities in danger of being shut off: no In past 12 months, lack of transportation kept you from medical appts, meetings, work, or getting things needed for daily living: no In the past 12 mos, have been you worried that your food would run out before you had money to buy more?: never true In the past 12 mos, the food you bought just didn't last and you didn't have money to buy more?: never true Highest level of school completed/degree received: high school graduate Smoking Status: Current some day smoker Do you use any of these nicotine containing products: None How often do you have a drink containing alcohol: never AUDIT-C Alcohol total score: 0 Non-prescribed substance use: denies use Caffeine: Yes (coffee, pop) How often does anyone, including family, friends and others, physically hurt you : never How often does anyone, including family, friends and others, insult or talk down to you: never How often does anyone, including family, friends and others, threaten you with harm: never How often does anyone, including family, friends and others, scream or curse at you: never service: No Exam Narrative: Exam Narrative: Constitutional: Well-developed, well-nourished. HEENT: Status post tonsillectomy. No sign of active bleeding. Neck: Normal range of motion. Nontender. Supple. Heart: Intact distal pulses. Tachycardia. Lungs: No chest discomfort. No wheezes, rhonchi, or rales. Abdomen: Nontender. Back: Normal range of motion. Extremities: Normal range of motion. No injury. Skin: Intact. No rash. Warm. No erythema or pallor. Neurologic: No altered sensation. No weakness. Alert and oriented. Psychiatric: No suicidality. No anxiety or depression. No insomnia. Nursing notes and vitals signs are reviewed. Const: Vital Signs, click to edit/add: Vital Signs - 24 hr 04/08/25 21:35 Temperature 98.9 F Pulse Rate [Bilate ral Pulse Oximeter ] 122 H Respiratory Rate 20 Blood Pressure [Ri ght Upper Arm] 118/70 Pulse Oximetry 96 Oxygen Delivery Me thod Room Air Course Vital Signs Vital signs: Initial Vital Signs Temperature 98.9 F 04/08/25 21:35 Temperature Source Temporal Artery Scan 04/08/25 21:35 Pulse Rate 122 H 04/08/25 21:35 Respiratory Rate 20 04/08/25 21:35 Blood Pressure 118/70 04/08/25 21:35 Blood Pressure Mean 86 04/08/25 21:35 Blood Pressure Position Sitting 04/08/25 21:35 Pulse Oximetry 96 04/08/25 21:35 Oxygen Delivery Method Room Air 04/08/25 21:35 Vital Signs Temperature 98.9 F 04/08/25 21:35 Pulse Rate 122 H 04/08/25 21:35 Respiratory Rate 20 04/08/25 21:35 Blood Pressure 118/70 04/08/25 21:35 Pulse Oximetry 96 04/08/25 21:35 Oxygen Delivery Method Room Air 04/08/25 21:35 Temperature 98.9 F 04/08/25 21:35 Pulse Rate 122 H 04/08/25 21:35 Respiratory Rate 20 04/08/25 21:35 Blood Pressure 118/70 04/08/25 21:35 Pulse Oximetry 96 04/08/25 21:35 Oxygen Delivery Method Room Air 04/08/25 21:35 Medical Decision Making MDM Narrative Medical decision making narrative: This patient is recovering from tonsillectomy and has not care to take much of anything by mouth. An IV was established where he did receive 2 L of normal saline and doses of Dilaudid 0.5 mg and Zofran 4 mg. He is okay to be discharged home to resume current plans. Discharge Plan Discharge Clinical Impression: Post-op pain, Fluid volume depletion Patient Disposition: Home w/ Parent or Adult Condition: Stable Additional Instructions: Use medicines as prescribed. Take frequent sips of fluids and increase diet as tolerated. Follow up with MD as needed. Prescriptions: No Action venlafaxine 150 mg capsule,extended release 24hr 150 mg PO QAM Qty: 90 3RF amoxicillin-pot clavulanate [Augmentin XR] 1,000-62.5 mg tablet extended release 12 hr 1 tab PO BID Qty: 18 0RF Skyrizi 360 mg/2.4 mL (150 mg/mL) wearable injector 360 mg subcut .M7RIVAE hydroxyzine HCl 25 mg tablet 25 - 50 mg PO TID PRN (Reason: anxiety) Qty: 60 0RF oxycodone 5 mg/5 mL solution 5 mg PO Q4-6H PRN (Reason: pain) Qty: 200 0RF ondansetron 4 mg tablet,disintegrating 2 mg PO Q8H PRN (Reason: nausea) Qty: 7 0RF Follow Up/Referrals: April Paul PA-C [Primary Care Provider, Family Practice] Stand Alone Forms: [employer] Info Instructions
[2025-04-08 22:02] VITALS: O2SAT 96
[2025-04-08 22:46] VITALS: BP 136/85; PULSE 100; RESP 20; TEMP 37.2; O2SAT 96
== END 2025-04-08 22:47 | disposition home or self-care (01) ==
PROVIDERS: Emergency Provider Emergency Medicine Emergency Medical Services; PCP Physician Assistant Medical
DX: G89.18 Other acute postprocedural pain (principal); E86.9 Volume depletion, unspecified
CPT/HCPCS: 94761; 96361; 96374; 96375; 99284; 99285; J1171; J2405; J7030

== ENCOUNTER 2025-04-11 05:16 | Emergency (ER) | payer BC, SELFPAY ==
--- OUTSIDE RECORDS SUMMARY | 2021-12-15 02:20 | XMS_ITS | Continuity of Care Document ---
Author Organization [facility] Address [address] [address] [place] [address] Phone Care Team Providers Care Recoating Machine Operator Name Role Phone Derek Armendariz MD Unavailable Unavailabl e Advance Directives Directive Yes / No Effective Date File Name No Information Encounters Encounter Description Practice Location Reason(s) For Visit Diagnoses Date Provider Providers Copied on Encounter [facility], [address] [address], [place], [place], [id number], [place] tel:[phone] [facility] No Information [facility]. [address] [address], [place], [place], [id number], [place]. tel:[phone] Family History Family Member Type Diagnosis Age At Onset No Information Payers Payer name Insurance type Covered green party ID Authoriza tion(s) No Information Social History Type Description Quantity Date Captured Comments Sex Male Smoking Status No Information Chief Complaint And Reason For Visit No Information Reason For Referral Reason For Referral No Information History Of Present Illness Encounter Date Complaint History Of Prese nt Illness No Information Functional Status Date Functional Assessmen t No Information Instructions Date Instruction Additional Infor mation No Information Assessments Type Assessment Date No Information Patient Care Teams Name Effective Dates (start - stop) Status Members No Information
--- OUTSIDE RECORDS SUMMARY | 2021-12-15 02:20 | XMS_ITS | Continuity of Care Document ---
Author Organization [facility] Address [address] [address] [place] [address] Phone Care Team Providers Care Mechanical Unit Repairer Name Role Phone Derek Armendariz MD Unavailable Unavailabl e Advance Directives Directive Yes / No Effective Date File Name No Information Encounters Encounter Description Practice Location Reason(s) For Visit Diagnoses Date Provider Providers Copied on Encounter [facility], [address] [address], [place], [place], [id number], [place] tel:[phone] [facility] No Information [facility]. [address] [address], [place], [place], [id number], [place]. tel:[phone] Family History Family Member Type Diagnosis Age At Onset No Information Payers Payer name Insurance type Covered alliance party ID Authoriza tion(s) No Information Social [...]
--- OUTSIDE RECORDS SUMMARY | 2025-04-11 05:18 | XMS_ITS | Clinical Summary ---
Author Organization [facility] Address [address] [place] [address] Care Team Providers Care Harness Inspector Name Role Phone Michael Jason MD Unavailable [phone] April Paul PA-C Primary Care Provider [phone] Nelida Villafuerte MD Unavailable [phone] Donna Little MD Unavailable [phone] Michael Jason MD Unavailable [phone] Loretta Hernández [facility] Unavailable [phone] Loretta Hernández [facility] Unavailable +- Allergies No known active allergies Medications MedicationSigDispense QuantityRefillsLast FilledStart DateEnd DateStatus Pediatric Qgxtfong-Vebwuwqq-F (GUMMY VITAMINS & MINERALS) chewable tablet Take [...] Problems ProblemNoted DateDiagnosed DatePositive QuantiFERON-TB Gold test03/05/2024Iron skbbcmzucf26/29/2024Partial small bowel eywhtwpwtxq29/04/2021rohn's disease of both small and large intestine with intestinal nrcnfpkvsab96/11/2019 Encounters DateTypeDepartmentCare CpipYszrskjkrej38/23/2025My Medical Advice [facility] [address] [place] [phone] Michael Jason MD 02/15/2025Results Follow-Up [facility] [address] [place] [phone] Michael Jason MD Subj: Message about your kuahcot8702/13/2025 3:30 PM CDTLab [facility] [address] [place] [phone] Crohn's disease of both small and large intestine with intestinal obstruction (H)02/12/2025 11:00 AM CDTVirtual Visit [facility] [address] [facility] [address] [place] [phone] Michael Jason MD Trocke, Lindsay Lundell, [facility] Crohn's disease of both small and large intestine with intestinal obstruction (H) (Primary Dx); Mood xwwltqyj43/16/2025MyC Medical Advice [facility] [address] [place] [address], [address] [place] [phone] Ame Coffman 01/17/2025Results Follow-Up [facility] [address] [place] [phone] Michael Jason MD Subj: Message about your aiglybc9201/16/2025 9:39 AM CDT - 01/16/2025 11:59 PM CDT Hospital Encounter [facility] [address] [place] [phone] Michael Jason MD Crohn's disease of both small and large intestine with intestinal obstruction (H) Discharge Disposition: Home or Self Care01/16/2025Telephone [facility] [address] [facility] [address]rd [place] [phone] Michael Jason MD Call Back01/16/2025Travelfrom Last 3 Months Immunizations ImmunizationAdministration DatesNext DueCOVID-19 Bivalent 12+ (Pfizer)03/22/2022 COVID-19 MONOVALENT 12+ (Pfizer)1DTAP (<7y)01/18/2007,04/20/2006, 02/20/2006,2005DTAP-IPV, <7Y (QUADRACEL/KINRIX)09/07/2010Flu, Unspecified 01/23/2008,01/18/2007,05/30/2006,04/20/20069714D5i9-31 Novel Flu02/17/2009HIB (PRP-T)10/27/2006,02/20/2006,2005HIB, Oysmjscdmat59/13/2007,02/20/2006, 2005HPV9 (Gardasil)10/02/2018,11/08/2017HepB, Oehrimfqnpq70/13/2007, 02/20/2006,2005Hepatitis A (Vaqta/Havrix)(Peds 12m-18y)09/27/2016, 09/22/2015Hepatitis B, Peds (Engerix-B/Recombivax HB)04/23/2019,10/27/2006, 02/20/2006,2005Historical DTP/aP1,04/20/2006,02/20/2006, 2005Influenza (H1N1)05/06/2009,02/17/2009Influenza (IIV3) PF12/21/2011, 01/17/2011,01/19/2010,01/02/2009Influenza (intradermal)01/23/2008,01/18/2007, 05/30/2006,04/20/2006Influenza (prior to 2023)01/17/2011,01/19/2010,01/02/2009 Influenza Intranasal Hcsxwqx6912/21/2011Influenza Vaccine >6 months,quad, PF 02/08/2022,02/23/2021,03/09/2020,01/28/2019,02/13/2018,02/08/2017,01/02/2009 Influenza Vaccine, 6+MO IM (QUADRIVALENT W/PRESERVATIVES)01/28/2019,02/13/2018, 02/08/2017,02/18/2016Influenza,INJ,MDCK,PF,Quad >6mo(Flucelvax)02/18/2016MMR (MMRII)09/07/2010,10/27/2006Meningococcal ACWY (Menactra??)06/13/2017 Meningococcal ACWY (Menveo??)06/13/2017Meningococcal,awvnzrdrmmc79/27/2018Nasal Influenza Vaccine 2-49 (FluMist)01/30/2015,03/07/2014,01/07/2013Pneumo Conj 13-V (2010&after)11/28/2019,2005Pneumococcal (PCV 7)10/27/2006,04/20/2006, 02/20/2006,2005Pneumococcal 23 pgoaku1308/21/2019Polio, Unspecified 04/20/2006,02/20/2006,2005Poliovirus, inactivated (IPV)2005TDAP Vaccine (Adacel)06/13/2017Varicella (Varivax)04/23/2019,09/07/2010,04/25/2007 [...] InformationValueDate RecordedSex Assigned at BirthNot on fileLegal WjhMmga18/04/2012 4:45 AM CSTGender IdentityNot on file Sexual OrientationNot on file Last Filed Vital Signs Vital SignReadingTime TakenCommentsBlood Jmpctwqj502/7705 8:29 AM CDT Gghvg501308/28/2024 8:29 AM FDWQgmupgydacr92.7 ??C (98.1 ??F)08/01/2024 4:24 PM CDTRespiratory Lcqe167308/01/2024 4:24 PM CDTOxygen Wyafjyrcjj92%08/01/2024 4:24 PM CDTInhaled Oxygen Concentration--Fmbjdz15.1 kg (170 lb)02/12/2025 10:35 AM GAAXkzgke382.5 cm (6' 3)02/12/2025 10:35 AM CDTBody Mass Index21.251 10:35 AM CDT Plan of Treatment DateTypeDepartmentCare Team (Latest Contact Info)Ttlbrqzgqyn00/20/2026 11:00 AM CSTOffice Visit [facility] [address] [place] [phone] Michael aJson MD [address] [place] [address] [phone] Health MaintenanceDue DateLast DoneCommentsADVANCE CARE XYOJBQIN21/04/2006NNUAL REVIEW OF HM OAZKIE13 2005YEARLY PREVENTIVE VISIT2008HIV SCREENING 2020MENINGITIS B VACCINE [...] Tdap) 8006/13/2017, 09/07/2010, 01/18/2007, Additional history existsHIB JOILYAURbaqxofly79/13/2007, 10/27/2006, 02/20/2006, Additional history existsIPV PLNRGFLHlylsjwfy42/24/2011, 04/20/2006, 02/20/2006, Additional history existsHPV BCHXDDBSdkzurkza45/18/2019, 11/08/2017HEPATITIS C SHZIBIRZVZlsaexnos72/11/2019 HEPATITIS B PYXPTENIdykgiypx22/07/2020, 10/27/2006, 10/27/2006, Additional history existsVARICELLA OEMZPLXLkdbzenqx94/07/2020, 09/07/2010, 04/25/2007 MENINGITIS IETYSKQHidvmmzlw15/19/2023, 06/13/2017, 06/13/2017, Additional history existsPHQ-2 (once per calendar year)Kfjmshyvl91/03/2025, 03/05/2024, 11/28/2023, Additional history exists Procedures Procedure NamePriorityDate/TimeAssociated DiagnosisCommentsCALPROTECTIN FECES Igxcktw0702/13/2025 2:50 PM CDT Crohn's disease of both small and large intestine with intestinal obstruction (H) MR ENTEROGRAPHY W/O AND W QGCVARTUKpyqjzm23/02/2025 12:01 PM CDT Crohn's disease of both small and large intestine with intestinal obstruction (H) HEPATITIS C TJAOZTXEYmtudoh77/11/2019 3:59 PM CDT Crohn's disease of both [...] TimeReceived TimeStoolRECTAL CONTENTS / UnknownNon-blood Collection / Ptwgwry2402/13/2025 2:50 PM CDT1 3:28 PM CDT Narrative Authorizing ProviderResult TypeResult StatusMichael Jason MDLAB - STOOLS ORDERABLESFinal ResultPerforming OrganizationAddressCity/State/ZIP CodePhone Number [facility]/PROT/ENDO [facility]/Prot/Endo [address] [facility] [address] Building, Room 3-[address] * MR Enterography wo and w [...] RangeTest MethodAnalysis TimePerformed AtPathologist SignatureHepatitis C Antibody NonreactiveNR^Jrdckqonium50/14/2019 11:48 AM CDTUNMEDSTAR GOOD SAMARITAN HOSPITALComment: Assay performance characteristics have not been established for newborns, infants, and children Specimen (Source)Anatomical Location / LateralityCollection Method / Volume Collection TimeReceived TimeBlood specimen (specimen)01/25/2019 3:59 PM CDT 01/25/2019 4:00 PM CDT Narrative Authorizing ProviderResult TypeResult Gerald Dotson MDLAB - BLOOD ORDERABLES Final ResultPerforming OrganizationAddressCity/State/ZIP CodePhone Number [facility] [address] [place] [address] from Last 3 Months or Most Recently Relevant to Health Maintenance Insurance Advance Directives For more information, please contact: [phone] * Full Code (Latest Code Status on File) Date ActivatedDate InactivatedComments07/19/2020 2:47 PM07/20/2020 3:17 PMAll basic and advanced life-sustaining interventions are performed as appropriateQuestion AnswerCommentsCode status determined by:* Unable to determine; FULL CODE until documents or legal decision maker available Care Teams Team MemberRelationshipSpecialtyStart DateEnd Date April Paul PA-C [facility] [address] [place], [place] [phone] PCP - General08/31/22 Michael Jason MD [address] [place] [address] [phone] Assigned Pediatric Specialist Provider07/30/22 Nelida Villafuerte MD [address] [place] [address] MDNeurology with Spec Qualification in Child Neurology11/30/22 Donna Little MD [facility] [address] [address] PhysicianPediatric Infectious Diseases12/04/23 Michael Jason MD [address] [place] [address] MDPediatric Vfxondvogmnvedct21/19/24 Loretta Hernández Javier [address] [place], [place] [phone] PharmacistPharmacist Ambulatory Care06/25/24 Loretta Hernández RPH [address] [place], [place] [phone] Assigned [facility] Pharmacist07/07/24
--- OUTSIDE RECORDS SUMMARY | 2025-04-11 05:18 | XMS_ITS | Encounter Summary ---
Author Organization [facility] Address [address] [place] [address] Care Team Providers Care Tax Examining Technician Name Role Phone Michael Jason MD Unavailable [phone] April Paul PA-C Primary Care Provider [phone] Nelida Villafuerte MD Unavailable [phone] Donna Little MD Unavailable [phone] Michael Jason MD Unavailable [phone] Loretta Hernández [facility] Unavailable [phone] Loretta Hernández [facility] Unavailable [phone]- Encounter Details DateTypeDepartmentCare Team (Latest Contact Info)Btnbvkmprbl78/23/2025[facility] Medical Advice [facility] [phone] Michael Jason MD [address] [place] [address] [phone] Social History Tobacco UseTypesPacks/DayYears UsedDateSmoking Tobacco: NeverPassive Smoke Exposure: NeverSmokeless Tobacco: NeverAlcohol UseStandard Drinks/WeekComments Never0 (1 standard drink = 0.6 oz pure alcohol)AUDIT-CAnswerDate RecordedQ1: How often do you have a drink containing alcohol?Never01/16/2019Average Number of DrinksNot on file01/16/2019Frequency of Binge DrinkingNot on file01/16/2019PHQ-2 AnswerDate RecordedPHQ-2 Fukcp3825Adolescent EducationAnswerDate Recorded Getting School Help NeededNot on file01/09/2023Sex and Gender InformationValue Date RecordedSex Assigned at BirthNot on fileLegal KpeUiga87/04/2012 4:45 AM 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 Gender IdentityNot on fileSexual OrientationNot on filedocumented as of this encounter Plan of Treatment DateTypeDepartmentCare Team (Latest Contact Info)Kmgcwnimfdi67/20/2026 11:00 AM CSTOffice Visit [facility] [address] [place] [phone] Michael Jason MD [address] [place] [address] [phone] documented as of this encounter Visit Diagnoses Not on filedocumented in this encounter Additional Health Concerns AssessmentNoted TimePHQ-9 Depression Total Score: 16008/31/2022 8:13 AM CDT documented as of this encounter Care Teams Team MemberRelationshipSpecialtyStart DateEnd Date April Paul PA-C [facility] [address] [place] [address] PCP - General08/31/22 Michael Jason MD [address] [place] [address] [phone] Assigned Pediatric Specialist Provider07/30/22 Nelida Villafuerte MD [address] [place] [address] [phone] Neurology with Spec Qualification in Child Neurology11/30/22 Donna Little MD [facility] [address] [phone] PhysicianPediatric Infectious Diseases12/04/23 Michael Jason MD [address] [place] [address] MDPediatric Jwttesvlnelhmhrq06/19/24 Loretta Hernández [facility] [address] [place] [address] [phone] PharmacistPharmacist Ambulatory Care06/25/24 Loretta Hernández [facility] [address] [place] [address] [phone] Assigned MTM Pharmacist07/07/24documented as of this encounter
[2025-04-11 05:21] VITALS: BP 138/91; PULSE 91; RESP 18; TEMP 36; O2SAT 96; BMI 20.2
--- NOTE | 2025-04-11 05:55 | ED_ITS ---
HPI - General Adult General Time Seen by Provider: 05:45 Date Seen: 04/11/25 Chief complaint: Sore Throat Stated complaint: dehydration Time Seen by Provider: 04/11/25 05:40 Source: patient and family (mom) Mode of arrival: ambulatory History of Present Illness HPI narrative: Julio is a 19-year-old male who has a past medical history of Crohn's disease who presents the emergency department from home with his mother for evaluation of postoperative pain. Patient recently had tonsillectomy on 04/04/2025. Patient reports decreased oral intake as well as ongoing severe pain since surgery. Mother reports that patient was in the emergency department on 04/08 for IV fluids, was in the emergency department again on 04/09 for post tonsillectomy bleeding and was brought to the operating room for cauterization. Mother notes that since that time he has had ongoing pain, decreased oral intake, and difficulty taking his oral pain medications. radha last took liquid Tylenol & oxycodone around 11:50 p.m. last night. Mother reports unable to take his medications this morning due to pain. Denies any fever, reports yes small amount of bleeding last night but since that time has had no additional episodes of bleeding. No other complaints. Related Data Home Medications ?Medication ?Instructions ?Recorded ?Confirmed risankizumab-rzaa 360 mg/2.4 mL 360 mg subcut .M1BGZCF 10/13/24 04/11/25 (150 mg/mL) subcut wearable injector (Skyrizi) Previous Rx's ?Medication ?Instructions ?Recorded venlafaxine 150 mg 150 mg PO QAM #90 caps 10/21 capsule,extended release 24 hr hydroxyzine HCl 25 mg tablet 25 - 50 mg (1 - 2 x 25 mg ) PO TID 03/19/25 PRN anxiety #60 tabs ondansetron 4 mg disintegrating 2 mg (1/2 x 4 mg) PO Q 8H PRN 04/04/25 tablet nausea #7 tabs oxycodone 5 mg/5 mL oral solution 5 mg (5 mL) PO Q4-6H PRN pain #200 04/09/25 mL Allergies Allergy/AdvReac Type Severity Reaction Status Date / Time No Known Drug Allergies Allergy Verified 04/09/25 12:11 Review of Systems Narrative: Past medical history, past surgical history, medications, allergies, family history, and social history were reviewed with the patient. No additional pertinent items. A medically appropriate review of systems was performed with pertinent positives and negatives noted in HPI, all other systems negative. [facility] Medical History Positive QuantiFERON-TB Gold test ?R76.12 - Nonspecific reaction to cell mediated immunity measurement of gamma interferon antigen response without active tuberculosis (ICD-10) Peritonsillar abscess ?J36 - Peritonsillar abscess (ICD-10) History of otitis media ?Z86.69 - Personal history of other diseases of the nervous system and sense organs (ICD-10) Cellulitis of left thumb ?L03.012 - Cellulitis of left finger (ICD-10) Sebopsoriasis ?L40.8 - Other psoriasis (ICD-10) Sprain of anterior talofibular ligament of right ankle ?S93.491A - Sprain of other ligament of right ankle, initial encounter (ICD- 10) Surgical History History of placement of ear tubes ?Z96.22 - Myringotomy tube(s) status (ICD-10) History of esophagogastroduodenoscopy (EGD) ?Z98.890 - Other specified postprocedural states (ICD-10) History of colonoscopy ?Z98.890 - Other specified postprocedural states (ICD-10) Family History Family/Other Coronary artery disease Father Hyperlipidemia Liver disease Mother Hyperlipidemia High blood pressure Maternal Grandmother Skin cancer Social History Narrative: No secondhand smoke exposure What is your current living situation?: I presently have a place to live Problems where you live: no known problems Problems where you live details: none In the past 12 months, utilities in danger of being shut off: no In past 12 months, lack of transportation kept you from medical appts, meetings, work, or getting things needed for daily living: no In the past 12 mos, have been you worried that your food would run out before you had money to buy more?: never true In the past 12 mos, the food you bought just didn't last and you didn't have money to buy more?: never true Highest level of school completed/degree received: high school graduate Smoking Status: Current some day smoker Do you use any of these nicotine containing products: None Second hand tobacco smoke exposure: No How often do you have a drink containing alcohol: never AUDIT-C Alcohol total score: 0 Non-prescribed substance use: denies use Caffeine: Yes (coffee, pop) How often does anyone, including family, friends and others, physically hurt you : never How often does anyone, including family, friends and others, insult or talk down to you: never How often does anyone, including family, friends and others, threaten you with harm: never How often does anyone, including family, friends and others, scream or curse at you: never service: No Exam Narrative: Exam Narrative: General: Afebrile, in distress secondary to pain HEENT: Normocephalic, atraumatic, conjunctiva normal. Posterior pharynx with p ost tonsillectomy changes, no evidence of active bleeding, dry mucous membranes Neck: non-tender, supple Cardio: regular rate. regular rhythm Resp: Normal work of breathing, no respiratory distress, lungs clear bilaterally, no wheezing, rhonchi, rales Chest/Back: no visual signs of trauma, no midline tenderness, no CVA tenderness Abdomen: soft, non distension, no tenderness, no peritoneal signs Neuro: alert and fully oriented. CN II-XII grossly intact. Grossly normal strength and sensation in all extremities. MSK: no deformities. Normal range of motion Integumentary/Skin: no rash visualized, normal color Psych: normal affect, normal behavior Const: Vital Signs, click to edit/add: Vital Signs - 24 hr 04/11/25 05:21 Temperature 96.8 F L Pulse Rate [Right Pulse Oximeter] 91 Respiratory Rate 18 Blood Pressure [Ri ght Upper Arm] 138/91 H Pulse Oximetry 96 Oxygen Delivery Me thod Room Air Course Vital Signs Vital signs: Initial Vital Signs Temperature 96.8 F L 04/11/25 05:21 Temperature Source Temporal Artery Scan 04/11/25 05:21 Pulse Rate 91 04/11/25 05:21 Respiratory Rate 18 04/11/25 05:21 Blood Pressure 138/91 H 04/11/25 05:21 Blood Pressure Mean 106 H 04/11/25 05:21 Blood Pressure Position Sitting 04/11/25 05:21 Pulse Oximetry 96 04/11/25 05:21 Oxygen Delivery Method Room Air 04/11/25 05:21 Vital Signs Temperature 96.8 F L 04/11/25 05:21 Pulse Rate 91 04/11/25 05:21 Respiratory Rate 18 04/11/25 05:21 Blood Pressure 138/91 H 04/11/25 05:21 Pulse Oximetry 96 04/11/25 05:21 Oxygen Delivery Method Room Air 04/11/25 05:21 Temperature 96.8 F L 04/11/25 05:21 Pulse Rate 91 04/11/25 05:21 Respiratory Rate 18 04/11/25 05:21 Blood Pressure 138/91 H 04/11/25 05:21 Pulse Oximetry 96 04/11/25 05:21 Oxygen Delivery Method Room Air 04/11/25 05:21 Medications Administered Medications: Generic Name Dose Route Start Last Admin Trade Name Chan PRN Reason Stop Dose Admin Sodium Chloride 1,000 mls @ 1,000 mls/hr 04/11/25 06:00 04/11/25 06:04 0.9 % Sodium Chloride 1000 Ml IV 04/11/25 06:59 1,000 mls/hr .Q1H DALLIN Administration Sodium Chloride 1,000 mls @ 1,000 mls/hr 04/11/25 06:00 04/11/25 06:00 0.9 % Sodium Chloride 1000 Ml IV 04/11/25 06:59 Infused .Q1H DALLIN Infusion Discontinued Medications Generic Name Dose Route Start Last Admin Trade Name Chan PRN Reason Stop Dose Admin Dexamethasone 10 mg 04/11/25 05:52 04/11/25 06:05 Dexamethasone 10 Mg/Ml Pf IVP 04/11/25 05:53 10 mg ONCE ONE Administration Hydromorphone HCl 0.5 mg 04/11/25 05:52 04/11/25 06:01 Hydromorphone 0.5 Mg/0.5 Ml Inj IVP 04/11/25 05:53 0.5 mg ONCE ONE Administration Ondansetron HCl 4 mg 04/11/25 05:52 04/11/25 05:59 Ondansetron 2 Mg/Ml Inj IVP 12/26/25 05:53 4 mg ONCE ONE Administration Medical Decision Making MDM Narrative Medical decision making narrative: Julio is a 19-year-old male who has a past medical history of Crohn's disease who presents the emergency department from home with his mother for evaluation of postoperative pain. Upon arrival patient is nontoxic appearing, afebrile, in distress secondary to pain. Patient reports ongoing pain, difficulty taking liquid pain medications as well as hydrating since surgery on 04/04. Per chart review patient was in the emergency department on 04/08 and received IV fluid bolus, IV Dilaudid, also in the emergency department again on 04/09 and went to the operating room for cauterization for post tonsillectomy bleeding. Upon arrival an IV was established, patient was treated with IV Zofran, IV Dilaudid, and 2 L IV fluid bolus. Patient unable to take ibuprofen due to history of Crohn's disease. Patient was also treated with a dose of IV dexamethasone while in the emergency department. On re-evaluation patient reports improvement of symptoms and feels comfortable with discharge home with ongoing oral hydration, patient has liquid Tylenol and oxycodone at home, will follow-up with ENT/primary care provider as needed. Return precautions discussed. Patient mother understand agrees plan. Discharge Plan Discharge Clinical Impression: Post-op pain Patient Disposition: Home, Self-Care Condition: Stable Additional Instructions: Please follow-up with your primary care provider or ENT surgeon as previously directed. Please try to take frequent sips of fluids. Please continue your own medications alternating between Tylenol and oxycodone for pain. Please return to the emergency department if any worsening symptoms. It was a pleasure taking care of you today. We hope you feel better soon. Prescriptions: No Action venlafaxine 150 mg capsule,extended release 24hr 150 mg PO QAM Qty: 90 3RF Skyrizi 360 mg/2.4 mL (150 mg/mL) wearable injector 360 mg subcut .[id number] hydroxyzine HCl 25 mg tablet 25 - 50 mg PO TID PRN (Reason: anxiety) Qty: 60 0RF oxycodone 5 mg/5 mL solution 5 mg PO Q4-6H PRN (Reason: pain) Qty: 200 0RF ondansetron 4 mg tablet,disintegrating 2 mg PO Q8H PRN (Reason: nausea) Qty: 7 0RF Follow Up/Referrals: April Paul PA-C [Primary Care Provider, Family Practice] Stand Alone Forms: [employer] Info Instructions
[2025-04-11] MEDS: ONDANSETRON 2 MG/ML inj 4 MG IVP (05:59)
[2025-04-11] MEDS: DEXAMETHASONE 10 MG/ML PF IVP (06:05)
[2025-04-11 06:42] VITALS: PULSE 89; O2SAT 92
[2025-04-11 06:45] VITALS: PULSE 96; O2SAT 93
[2025-04-11 07:00] VITALS: PULSE 76; O2SAT 95
[2025-04-11 07:02] VITALS: BP 115/73; PULSE 77; O2SAT 95
== END 2025-04-11 07:25 | disposition home or self-care (01) ==
PROVIDERS: Emergency Provider Emergency Medicine; PCP Physician Assistant Medical
DX: J02.9 Acute pharyngitis, unspecified (principal); G89.18 Other acute postprocedural pain
CPT/HCPCS: 96374; 96375; 99283; 99284; 99285; J1100; J1171; J2405; J7030

== ENCOUNTER 2025-04-13 13:03 | Emergency (ER) | payer BC, SELFPAY ==
--- OUTSIDE RECORDS SUMMARY | 2025-04-13 13:05 | XMS_ITS | Encounter Summary ---
Author Organization [facility] Address [address] [place] [address] Care Team Providers Care Sole Conditioner Name Role Phone Michael Jason MD Unavailable [phone] April Paul PA-C Primary Care Provider [phone] Nelida Villafuerte MD Unavailable [phone] Donna Little MD Unavailable [phone] Michael Jason MD Unavailable [phone] Loretta Hernández [facility] Unavailable [phone] Loretta Hernández [facility] Unavailable [phone] Encounter Details DateTypeDepartmentCare Team (Latest Contact Info)Rjrghmkwuul32/23/2025[facility] Medical Advice [facility] [phone] Michael Jason MD [address] [place] [address] [phone] Social History Tobacco UseTypesPacks/DayYears UsedDateSmoking Tobacco: NeverPassive Smoke Exposure: NeverSmokeless Tobacco: NeverAlcohol UseStandard Drinks/WeekComments Never0 (1 standard drink = 0.6 oz pure alcohol)AUDIT-CAnswerDate RecordedQ1: How often do you have a drink containing alcohol?Never01/16/2019Average Number of DrinksNot on file01/16/2019Frequency of Binge DrinkingNot on file01/16/2019PHQ-2 AnswerDate RecordedPHQ-2 Fbzkv5375Adolescent EducationAnswerDate Recorded Getting School Help NeededNot on file01/09/2023Sex and Gender InformationValue Date RecordedSex Assigned at BirthNot on fileLegal YxnQekn84/04/2012 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 Gender IdentityNot on fileSexual OrientationNot on filedocumented as of this encounter Plan of Treatment DateTypeDepartmentCare Team (Latest Contact Info)Hzfjsphwzzc64/20/2026 11:00 AM CSTOffice Visit [facility] [address] [place] [phone] Michael Jason MD [address] [place] [address] [phone] documented as of this encounter Visit Diagnoses Not on filedocumented in this encounter Additional Health Concerns AssessmentNoted TimePHQ-9 Depression Total Score: 16008/31/2022 8:13 AM CDT documented as of this encounter Care Teams Team MemberRelationshipSpecialtyStart DateEnd Date April Paul PA-C [facility] [address] [place] [address] PCP - General08/31/22 Michael Jason MD [address] [place] [address] [phone] Assigned Pediatric Specialist Provider07/30/22 Nelida Villafuerte MD [address] [place] [address] [phone] Neurology with Spec Qualification in Child Neurology11/30/22 Donna Little MD [facility] [address] [phone] PhysicianPediatric Infectious Diseases12/04/23 Michael Jason MD [address] [place] [address] MDPediatric Ivwcwsroncamemvz33/19/24 Loretta Hernández [facility] [address] [place] [address] [phone] PharmacistPharmacist Ambulatory Care06/25/24 Loretta Hernández [facility] [address] [place] [address] [phone] Assigned MTM Pharmacist07/07/24documented as of this encounter
--- OUTSIDE RECORDS SUMMARY | 2025-04-13 13:05 | XMS_ITS | Clinical Summary ---
Author Organization [facility] Address [address] [place] [address] Care Team Providers Care Track Leader Name Role Phone Michael Jason MD Unavailable [phone] April Paul PA-C Primary Care Provider [phone] Nelida Villafuerte MD Unavailable [phone] Donna Little MD Unavailable [phone] Michael Jason MD Unavailable [phone] Loretta Hernández [facility] Unavailable [phone] Loretta Hernández [facility] Unavailable +- Allergies No known active allergies Medications MedicationSigDispense QuantityRefillsLast FilledStart DateEnd DateStatus Pediatric Qqlzxcyt-Bwjcnpyy-U (GUMMY VITAMINS & MINERALS) chewable tablet Take [...] Problems ProblemNoted DateDiagnosed DatePositive QuantiFERON-TB Gold test03/05/2024Iron /29/2024Partial small bowel idyfyljmxsu64/04/2021rohn's disease of both small and large intestine with intestinal rwsdspzjsro78/11/2019 Encounters DateTypeDepartmentCare XwnpNquwxfaioqw26/23/2025My Medical Advice [facility] [address] [place] [phone] Michael Jason MD 02/15/2025Results Follow-Up [facility] [address] [place] [phone] Michael Jason MD Subj: Message about your gvoyili7802/13/2025 3:30 PM CDTLab [facility] [address] [place] [phone] Crohn's disease of both small and large intestine with intestinal obstruction (H)02/12/2025 11:00 AM CDTVirtual Visit [facility] [address] [place] [phone] Michael Jason MD Trocke, Lindsay Lundell, [facility] Crohn's disease of both small and large intestine with intestinal obstruction (H) (Primary Dx); Mood bipviyzk65/16/2025MyC Medical Advice [facility] [address] [place] [address], [address] [place] [phone] Ame Coffman 01/17/2025Results Follow-Up [facility] [address] [place] [phone] Michael Jason MD Subj: Message about your qlcmaev7601/16/2025 9:39 AM CDT - 01/16/2025 11:59 PM CDT Hospital Encounter [facility] [address] [place] [phone] Michael Jason MD Crohn's disease of both small and large intestine with intestinal obstruction (H) Discharge Disposition: Home or Self Care01/16/2025Telephone [facility] [address] [facility] [address] [place] [phone] Michael Jason MD Call Back01/16/2025Travelfrom Last 3 Months Immunizations ImmunizationAdministration DatesNext DueCOVID-19 Bivalent 12+ (Pfizer)03/22/2022 COVID-19 MONOVALENT 12+ (Pfizer)1DTAP (<7y)01/18/2007,04/20/2006, 02/20/2006,2005DTAP-IPV, <7Y (QUADRACEL/KINRIX)09/07/2010Flu, Unspecified 01/23/2008,01/18/2007,05/30/2006,04/20/20069504O5s6-12 Novel Flu02/17/2009HIB (PRP-T)10/27/2006,02/20/2006,2005HIB, Gslaztezxld11/13/2007,02/20/2006, 2005HPV9 (Gardasil)10/02/2018,11/08/2017HepB, Jrdggkasmxk95/13/2007, 02/20/2006,2005Hepatitis A (Vaqta/Havrix)(Peds 12m-18y)09/27/2016, 09/22/2015Hepatitis B, Peds (Engerix-B/Recombivax HB)04/23/2019,10/27/2006, 02/20/2006,2005Historical DTP/aP1,04/20/2006,02/20/2006, 2005Influenza (H1N1)05/06/2009,02/17/2009Influenza (IIV3) PF12/21/2011, 01/17/2011,01/19/2010,01/02/2009Influenza (intradermal)01/23/2008,01/18/2007, 05/30/2006,04/20/2006Influenza (prior to 2023)01/17/2011,01/19/2010,01/02/2009 Influenza Intranasal Bmbqhvp5812/21/2011Influenza Vaccine >6 months,quad, PF 02/08/2022,02/23/2021,03/09/2020,01/28/2019,02/13/2018,02/08/2017,01/02/2009 Influenza Vaccine, 6+MO IM (QUADRIVALENT W/PRESERVATIVES)01/28/2019,02/13/2018, 02/08/2017,02/18/2016Influenza,INJ,MDCK,PF,Quad >6mo(Flucelvax)02/18/2016MMR (MMRII)09/07/2010,10/27/2006Meningococcal ACWY (Menactra??)06/13/2017 Meningococcal ACWY (Menveo??)06/13/2017Meningococcal,klkocacdmqf68/27/2018Nasal Influenza Vaccine 2-49 (FluMist)01/30/2015,03/07/2014,01/07/2013Pneumo Conj 13-V (2010&after)11/28/2019,2005Pneumococcal (PCV 7)10/27/2006,04/20/2006, 02/20/2006,2005Pneumococcal 23 prqiff2908/21/2019Polio, Unspecified 04/20/2006,02/20/2006,2005Poliovirus, inactivated (IPV)2005TDAP Vaccine (Adacel)06/13/2017Varicella (Varivax)04/23/2019,09/07/2010,04/25/2007 [...] InformationValueDate RecordedSex Assigned at BirthNot on fileLegal PvaFdvj16/04/2012 4:45 AM CSTGender IdentityNot on file Sexual OrientationNot on file Last Filed Vital Signs Vital SignReadingTime TakenCommentsBlood Cnklyoam560/7705 8:29 AM CDT Zzcdg949708/28/2024 8:29 AM HUMGtfzpaknrvv48.7 ??C (98.1 ??F)08/01/2024 4:24 PM CDTRespiratory Dohi812408/01/2024 4:24 PM CDTOxygen Ivetzdlvid07%08/01/2024 4:24 PM CDTInhaled Oxygen Concentration--Gpopzu75.1 kg (170 lb)02/12/2025 10:35 AM KZAZxepcm362.5 cm (6' 3)02/12/2025 10:35 AM CDTBody Mass Index21.251 10:35 AM CDT Plan of Treatment DateTypeDepartmentCare Team (Latest Contact Info)Mvrtfvsxact72/20/2026 11:00 AM CSTOffice Visit [facility] [address] [place] [phone] Michael Jason MD [address] [place] [address] [phone] Health MaintenanceDue DateLast DoneCommentsADVANCE CARE BXRIRYPV60/04/2006NNUAL REVIEW OF HM PWIIKV88 2005YEARLY PREVENTIVE VISIT2008HIV SCREENING 2020MENINGITIS B VACCINE [...] Tdap) 8006/13/2017, 09/07/2010, 01/18/2007, Additional history existsHIB OETXSLTDfzzqklto78/13/2007, 10/27/2006, 02/20/2006, Additional history existsIPV DWBRHPJMibijycal48/24/2011, 04/20/2006, 02/20/2006, Additional history existsHPV UMIKKZVHknumthqh03/18/2019, 11/08/2017HEPATITIS C LRMPKQCOPPrkuilmhy38/11/2019 HEPATITIS B ECPXGMVVqkumcrcw88/07/2020, 10/27/2006, 10/27/2006, Additional history existsVARICELLA CQTGDCUCenuwvgjm72/07/2020, 09/07/2010, 04/25/2007 MENINGITIS BCLRMGPQhpeeqnxt64/19/2023, 06/13/2017, 06/13/2017, Additional history existsPHQ-2 (once per calendar year)Vnlqlbozq65/03/2025, 03/05/2024, 11/28/2023, Additional history exists Procedures Procedure NamePriorityDate/TimeAssociated DiagnosisCommentsCALPROTECTIN FECES Kgwbtxf9602/13/2025 2:50 PM CDT Crohn's disease of both small and large intestine with intestinal obstruction (H) MR ENTEROGRAPHY W/O AND W KSNMMIEZKemclib96/02/2025 12:01 PM CDT Crohn's disease of both small and large intestine with intestinal obstruction (H) HEPATITIS C URQKMAFIIwuasqs86/11/2019 3:59 PM CDT Crohn's disease of both [...] TimeReceived TimeStoolRECTAL CONTENTS / UnknownNon-blood Collection / Txwrfnm4102/13/2025 2:50 PM CDT1 3:28 PM CDT Narrative Authorizing ProviderResult TypeResult StatusMichael Jason MDLAB - STOOLS ORDERABLESFinal ResultPerforming OrganizationAddressCity/State/ZIP CodePhone Number [facility]/PROT/ENDO [facility]/Prot/Endo [address] [facility] [address] Building, Room 3-[address] * MR Enterography wo and w [...] RangeTest MethodAnalysis TimePerformed AtPathologist SignatureHepatitis C Antibody NonreactiveNR^Xfdyrmldxug08/14/2019 11:48 AM CDTUNSAINT LUKE INSTITUTEComment: Assay performance characteristics have not been established for newborns, infants, and children Specimen (Source)Anatomical Location / LateralityCollection Method / Volume Collection TimeReceived TimeBlood specimen (specimen)01/25/2019 3:59 PM CDT 01/25/2019 4:00 PM CDT Narrative Authorizing ProviderResult TypeResult Gerald Dotson MDLAB - BLOOD ORDERABLES Final ResultPerforming OrganizationAddressCity/State/ZIP CodePhone Number [facility] [address] [place] [address] from Last 3 Months or Most Recently Relevant to Health Maintenance Insurance Advance Directives For more information, please contact: [phone] * Full Code (Latest Code Status on File) Date ActivatedDate InactivatedComments07/19/2020 2:47 PM07/20/2020 3:17 PMAll basic and advanced life-sustaining interventions are performed as appropriateQuestion AnswerCommentsCode status determined by:* Unable to determine; FULL CODE until documents or legal decision maker available Care Teams Team MemberRelationshipSpecialtyStart DateEnd Date April Paul PA-C [facility] [address] [place], [place] [phone] PCP - General08/31/22 Michael Jason MD [address] [place] [address] [phone] Assigned Pediatric Specialist Provider07/30/22 Nelida Villafuerte MD [address] [place] [address] MDNeurology with Spec Qualification in Child Neurology11/30/22 Donna Little MD [facility] [address] [address] PhysicianPediatric Infectious Diseases12/04/23 Michael Jason MD [address] [place] [address] MDPediatric Ovlryxxkvztnqeid99/19/24 Loretta Hernández Javier [address] [place], [place] 395825 PharmacistPharmacist Ambulatory Care06/25/24 Loretta Hernández RPH [address] [place], [place] 447315 Assigned [facility] Pharmacist07/07/24
[2025-04-13 13:53] VITALS: BP 125/85; PULSE 99; RESP 18; TEMP 36.8; O2SAT 96
--- NOTE | 2025-04-13 15:29 | ED.GENADULT ---
HPI - General Adult General Date Seen: 04/13/25 Chief complaint: Unspecified Complaint, Adult Stated complaint: dehydrated Time Seen by Provider: 04/13/25 13:49 History of Present Illness HPI narrative: 19-year-old male with a history of Crohn's disease, ADHD, anxiety depression, and tonsillectomy on 04/[address] Hays, and then repeat operation on 04/09 for post tonsillectomy hemorrhage. He presents to the ER today, accompanied by his mother, with concern for dehydration and poor oral intake. They indicate that he was given a prescription for oxycodone elix, 5 mg per dose. However he has been having lot of pain with even taking his pain meds for the past few days so he has not really been taking it very much. He has also been trying to drink water but has lot of pain with swelling so does not want to drink. He was to having lot of pain yesterday and not drinking. Your not output is decreased and is fairly dark yellow. Today he is having little bit less pain but still afraid to drink because he is will worried it will hurt a lot so he is not drinking much. He is feeling a little bit weak and tired because he is dehydrated. They came back to the ER today desiring some IV fluids because they were instructed by either ENT surgeon to avoid dehydration and come in if they needed. He has not had any further bleeding since [place] see. His mother has been looking in his throat and his sees the eschars of been in place. He is not having any fever. He was having a fair amount of swelling in his throat when he was seen here in the ER 2 nights ago so receive some steroids during that visit and his mother notes that the swelling is visibly decreased since then. He is not having any trouble breathing. No cough. No vomiting. Related Data Home Medications ?Medication ?Instructions ?Recorded ?Confirmed risankizumab-rzaa 360 mg/2.4 mL 360 mg subcut .[id number] 10/13/24 04/11/25 (150 mg/mL) subcut wearable injector (Michelineyrizi) Previous Rx's ?Medication ?Instructions ?Recorded venlafaxine 150 mg 150 mg PO QAM #90 caps 10/21/24 capsule,extended release 24 hr hydroxyzine HCl 25 mg tablet 25 - 50 mg (1 - 2 x 25 mg) PO TID 03/19/25 PRN anxiety #60 tabs ondansetron 4 mg disintegrating 2 mg (1/2 x 4 mg) PO Q8H PRN 04/04/25 tablet nausea #7 tabs oxycodone 5 mg/5 mL oral solution 5 mg (5 mL) PO Q4-6H PRN pain #200 04/09/25 mL Allergies Allergy/AdvReac Type Severity Reaction Status Date / Time No Known Drug Allergies Allergy Verified 04/13/25 13:53 PFSH PFSH Medical History Positive QuantiFERON-TB Gold test ?R76.12 - Nonspecific reaction to cell mediated immunity measurement of gamma interferon antigen response without active tuberculosis (ICD-10) Peritonsillar abscess ?J36 - Peritonsillar abscess (ICD-10) History of otitis media ?Z86.69 - Personal history of other diseases of the nervous system and sense organs (ICD-10) Cellulitis of left thumb ?L03.012 - Cellulitis of left finger (ICD-10) Sebopsoriasis ?L40.8 - Other psoriasis (ICD-10) Sprain of anterior talofibular ligament of right ankle ?S93.491A - Sprain of other ligament of right ankle, initial encounter (ICD-10) Surgical History History of placement of ear tubes ?Z96.22 - Myringotomy tube(s) status (ICD-10) History of esophagogastroduodenoscopy (EGD) ?Z98.890 - Other specified postprocedural states (ICD-10) History of colonoscopy ?Z98.890 - Other specified postprocedural states (ICD-10) Family History Family/Other Coronary artery disease Father Hyperlipidemia Liver disease Mother Hyperlipidemia High blood pressure Maternal Grandmother Skin cancer Social History Narrative: No secondhand smoke exposure What is your current living situation?: I presently have a place to live Problems where you live: no known problems Problems where you live details: none In the past 12 months, utilities in danger of being shut off: no In past 12 months, lack of transportation kept you from medical appts, meetings, work, or getting things needed for daily living: no In the past 12 mos, have been you worried that your food would run out before you had money to buy more?: never true In the past 12 mos, the food you bought just didn't last and you didn't have money to buy more?: never true Highest level of school completed/degree received: high school graduate Smoking Status: Current some day smoker Do you use any of these nicotine containing products: None Second hand tobacco smoke exposure: No How often do you have a drink containing alcohol: never AUDIT-C Alcohol total score: 0 Non-prescribed substance use: denies use Caffeine: Yes (coffee, pop) How often does anyone, including family, friends and others, physically hurt you: never How often does anyone, including family, friends and others, insult or talk down to you: never How often does anyone, including family, friends and others, threaten you with harm: never How often does anyone, including family, friends and others, scream or curse at you: never service: No Exam Narrative: Exam Narrative: Constitutional: Appears well-developed and well-nourished. Alert. Initially does not want to talk but is able to talk and when he does his phonation is normal.. Non toxic. HENT: Head: Atraumatic. Nose: Nose normal. Mouth/Throat: Oral mucosa is clear . Mucous membranes are dry but not desiccated or cracked. no trismus. Uvula is midline. The eschars are in place on both of his tonsillar beds. I do not see any bleeding signs of infection. Eyes: Conjunctivae normal. EOM normal. Pupils equal, round, and reactive to light. No scleral icterus. Neck: Normal range of motion. Neck supple. No tracheal deviation present. Cardiovascular: Normal rate, regular rhythm. No gallop. No friction rub. No murmur heard. Pulmonary/Chest: Effort normal. No stridor. No respiratory distress. No wheezes. No rales. No rhonchi Musculoskeletal: RUE: Normal range of motion. No tenderness. No deformity LUE: Normal range of motion. No tenderness. No deformity RLE: Normal range of motion. No edema. No tenderness. No deformity LLE: Normal range of motion. No edema. No tenderness. No deformity Neurological: Alert and oriented to person, place, and time. Normal strength. CN II-VII intact. No sensory deficit. GCS eye subscore is 4. GCS verbal subscore is 5. GCS motor subscore is 6. Normal coordination Skin: Skin is warm and dry. No rash noted. No pallor. Normal capillary refill. Psychiatric: Normal mood. Mildly anxious. Polite and cooperative. Interacts appropriately with his mother who is very attentive. Const: Vital Signs, click to edit/add: Vital Signs - 24 hr 04/13/25 13:53 Temperature 98.3 F Pulse Rate [Pulse Oximeter] 99 Respiratory Rate 18 Blood Pressure [Ri t Upper Arm] 125/85 Pulse Oximetry 96 Oxygen Delivery Me thod Room Air Course Vital Signs Vital signs: Initial Vital Signs Temperature 98.3 F 04/13/25 13:53 Temperature Source Temporal Artery Scan 04/13/25 13:53 Pulse Rate 99 04/13/25 13:53 Respiratory Rate 18 04/13/25 13:53 Blood Pressure 125/85 04/13/25 13:53 Blood Pressure Mean 98 04/13/25 13:53 Pulse Oximetry 96 04/13/25 13:53 Oxygen Delivery Method Room Air 04/13/25 13:53 Vital Signs Temperature 98.3 F 04/13/25 13:53 Pulse Rate 99 04/13/25 13:53 Respiratory Rate 18 04/13/25 13:53 Blood Pressure 125/85 04/13/25 13:53 Pulse Oximetry 96 04/13/25 13:53 Oxygen Delivery Method Room Air 04/13/25 13:53 Temperature 98.3 F 04/13/25 13:53 Pulse Rate 99 04/13/25 13:53 Respiratory Rate 18 04/13/25 13:53 Blood Pressure 125/85 04/13/25 13:53 Pulse Oximetry 96 04/13/25 13:53 Oxygen Delivery Method Room Air 04/13/25 13:53 Medications Administered Medications: Discontinued Medications Generic Name Dose Route Start Last Admin Trade Name Freq PRN Reason Stop Dose Admin Lactated Ringer's 1,000 mls @ 1,000 mls/hr 04/13/25 15:43 04/13/25 16:40 Lactated Ringers 1000 Ml IV 04/13/25 16:42 Infused .Q1H ONE Infusion Medical Decision Making MDM Narrative Medical decision making narrative: 19-year-old male returning to the ER today with symptoms of dehydration. He is 9 days status post tonsillectomy and 4 days status post cauterization for a right tonsillar bleed. He has been having lot of trouble with his throat pain ever since surgery. He was seen here in the ER 2 days ago with inability to tolerate p.o. and received IV fluids and steroids. He has had ongoing trouble since then so came back to the ER today. On clinical exam is showing signs of [id number]-he-qpinvows dehydration but not severe dehydration. He is hemodynamically stable. We did check labs and his kidney function, electrolytes are reassuring. He received a L of IV fluid here in the ER. He is making urine. He has been able to take sips of water here in the ER after pain meds and has had perhaps 6-8 oz water since arrival. I think the big problem for him his pain control at home. He has been periodically using oxycodone at 5 mg per dose. Based on his weight I think would be appropriate for him to increase that up to 10 mg per dose for better analgesia. Discussed opiate side effects and precautions, in detail, with the patient and his mother. They are comfortable discharging home and feel like he can stay hydrated overnight. Precautions for return to the ER need for follow-up reviewed. Lab Data Labs: Lab Results 04/13/25 Range/Units 16:00 Sodium 138 (135-149) mmol/L Potassium 3.9 (3.6-5.1) mmol/L Chloride 102 (96-114) mmol/L Carbon Dioxide 28 (20-32) mmol/L Anion Gap 8 (7-15) mEq/L BUN 14 (5-24) mg/dL Creatinine 0.9 (0.6-1.2) mg/dL Estimated GFR 126 ml/min Glucose 91 (60-115) mg/dL Calcium 9.2 (8.7-10.8) mg/dL Discharge Plan Discharge Clinical Impression: Dehydration, Throat pain Patient Disposition: Home, Self-Care Condition: Stable Instructions: Tonsillectomy (DC) Additional Instructions: As we discussed, come back to the ER if you are having problems especially worsening dehydration, worsening severe pain or swelling in your throat, high fever, or any bleeding. Do your best to stay hydrated. Try to drink frequent small sips of water or other a cool, soothing liquids. You can increase her dose of your oxycodone from 5 mg per dose up to 10 mg per dose as needed. Typically using 5-10 mg of oxycodone every 4-6 hours is a safe and reasonable dose for a patient of your body size. Be careful because taking pain killers can cause side effects such as dizziness, drowsiness, constipation, and can be addictive. taking too much pain killer can affect her breathing and be very dangerous. Prescriptions: No Action venlafaxine 150 mg capsule,extended release 24hr 150 mg PO QAM Qty: 90 3RF Skyrizi 360 mg/2.4 mL (150 mg/mL) wearable injector 360 mg subcut .[id number] hydroxyzine HCl 25 mg tablet 25 - 50 mg PO TID PRN (Reason: anxiety) Qty: 60 0RF oxycodone 5 mg/5 mL solution 5 mg PO Q4-6H PRN (Reason: pain) Qty: 200 0RF ondansetron 4 mg tablet,disintegrating 2 mg PO Q8H PRN (Reason: nausea) Qty: 7 0RF Follow Up/Referrals: April Paul PA-C [Primary Care Provider, Family Practice] [facility]: [facility] Info Instructions
[2025-04-13] MEDS: LACTATED RINGERS 1000 ML 1,000 ML IV (16:09)
[2025-04-13 16:26] LABS: Chloride* 102 mmol/L (96-114)
[2025-04-13 16:27] LABS: Potassium* 3.9 mmol/L (3.6-5.1); Sodium* 138 mmol/L (135-149)
[2025-04-13 16:30] LABS: Anion Gap 8 mEq/L (7-15); Blood Urea Nitrogen* 14 mg/dL (5-24); Calcium* 9.2 mg/dL (8.7-10.8); Carbon Dioxide* 28 mmol/L (20-32); Creatinine* 0.9 mg/dL (0.6-1.2); Estimated Glomerular Filt Rate 126 ml/min; Glucose* 91 mg/dL (60-115)
== END 2025-04-13 16:55 | disposition home or self-care (01) ==
PROVIDERS: Emergency Provider Emergency Medicine; PCP Physician Assistant Medical
DX: R07.0 Pain in throat (principal); E86.0 Dehydration; Z98.890 Other specified postprocedural states
CPT/HCPCS: 36415; 80048; 87631; 96360; 96361; 99283; 99284; J7120